=== PATIENT | female | born 1985 ===

== ENCOUNTER 2021-08-25 14:24 | Outpatient (CLI) | payer OTHER | END 2021-08-25 14:28 | disposition home or self-care (01) | LOC: SONOGRAMA 14:24 | PROVIDERS: ATTEND Physical Medicine & Rehabilitation Hospice and Palliative Medicine | DX: M25.532 Pain in left wrist (principal); M25.531 Pain in right wrist; M79.641 Pain in right hand; M79.642 Pain in left hand; G56.01 Carpal tunnel syndrome, right upper limb ==

== ENCOUNTER → 2022-10-20 | Outpatient (CLI) | payer OTHER | END | disposition home or self-care (01) | LOC: RAD 10:52 | PROVIDERS: ATTEND Physical Medicine & Rehabilitation | DX: M25.531 Pain in right wrist (principal); M79.641 Pain in right hand ==